=== PATIENT | female | born 1960 | race Caucasian/White ===

== ENCOUNTER 2017-06-16 13:43 | Emergency (ER) | payer BC ==
[2017-06-16 18:33] VITALS: BP 0/0
--- NOTE | 2017-06-16 20:13 | UC ---
Dizzy HPI - History Of Current Complaint Chief Complaint: UCAbdominalPain Stated Complaint: BACK PAIN AND ABDOMINAL SWELLING Time Seen by Provider: 06/16/17 18:00 Pain Intensity: 6 Pain Scale Used: 0-10 Numeric - Allergies/Home Medications Allergies/Adverse Reactions: Allergies Allergy/AdvReac Type Severity Reaction Status Date / Time No Known Allergies Allergy Verified 06/16/17 15:54 Home Medications: Home Medications Ibuprofen TAB* [Motrin TAB* 400 MG] 400 mg PO Q6H PRN 06/16/17 [History Confirmed 06/16/17] PMH/Surg Hx/FS Hx/Imm Hx - Surgical History Surgical History: Yes Surgery Procedure, Year, and Place: 2 LAPAROSCOPIES. 2 [place] 3 [facility] [place] - Family History Known Family History: Positive: None - Social History Alcohol Use: None Substance Use Type: None Smoking Status (MU): Current Every Day Smoker Amount Used/How Often: PPD Physical Exam Vital Signs: Initial Vital Signs Temp 98 F 06/16/17 15:56 Pulse 84 06/16/17 15:56 Resp 22 06/16/17 15:56 BP 151/90 06/16/17 15:56 Pulse Ox 97 06/16/17 15:56 Discharge - Discharge Plan Condition: Stable Disposition: OTHER Patient Education Materials: Abdominal Pain (ED) Referrals: Caro Esteban MD [Primary Care Provider] - If Needed Additional Instructions: UNCLEAR ETIOLOGY OF YOUR ABDOMINAL AND BACK PAIN. RECOMMEND GOING [place] [facility] [place] HERE FOR FURTHER EVALUATION.
--- NOTE | 2017-06-16 20:15 | UC ---
Abdominal Pain Female HPI - HPI Summary HPI Summary: 2 DAYS OF DIFFUSE ABDOMINAL PAIN AND BLOATING. NO NAUSEA OR FEVER. ALSO HAS RIGHT LOW BACK PAIN. SKIN IS TENDER AND PT REPORTS SHE FEELS A DEEP PAIN INSIDE. NO INJURY SHE CAN IDENTIFY. HAS PAIN WITH MOVEMENT. 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 Negative: Fever, Cough, Constipation, Blood in Stool, Urinary Symptoms, Nausea Allergies/Adverse Reactions: Allergies Allergy/AdvReac Type Severity Reaction Status Date / Time No Known Allergies Allergy Verified 06/16/17 15:54 Home Medications: Home Medications Ibuprofen TAB* [Motrin TAB* 400 MG] 400 mg PO Q6H PRN 06/16/17 [History Confirmed 06/16/17] PMH/Surg Hx/FS Hx/Imm Hx - Additional Past Medical History Additional PMH: ENDOMETRIOSIS, OVARIAN CYSTS - Surgical History Surgical History: Yes Surgery Procedure, Year, and Place: 2 LAPAROSCOPIES. 2 OR 3 [facility]. TONSILLECTOMY - Family History Known Family History: Positive: None - Social History Alcohol Use: None Substance Use Type: None Smoking Status (MU): Current Every Day Smoker Amount Used/How Often: PPD Review of Systems Constitutional: Negative Skin: Negative Respiratory: Negative Cardiovascular: Negative Gastrointestinal: Abdominal Pain, Other - DISTENDED, BLOATED Genitourinary: Negative All Other Systems Reviewed And Are Negative: Yes Physical Exam Triage Information Reviewed: Yes Appearance: Well-Nourished, Pain Distress - MODERATE Vital Signs: Initial Vital Signs Temp 98 F 06/16/17 15:56 Pulse 84 06/16/17 15:56 Resp 22 06/16/17 15:56 BP 151/90 06/16/17 15:56 Pulse Ox 97 06/16/17 15:56 Vital Signs Reviewed: Yes Eyes: Positive: Conjunctiva Clear ENT: Positive: Hearing grossly normal Neck: Positive: Supple Respiratory: Positive: Normal breath sounds, No respiratory distress Cardiovascular: Positive: Pulses Normal Abdomen Description: Positive: Soft, Distended, Other: - TENDER DIFFUSELY UPPER ABDOMEN WITH VOLUNTARY GUARDING AND GRIMACING. NO REBOUND. Negative: CVA Tenderness (R), CVA Tenderness (L) Bowel Sounds: Positive: Present Musculoskeletal: Positive: No Edema Neurological: Positive: Alert Psychological: Positive: Normal Response To Family, Age Appropriate Behavior Skin: Positive: Other - NO RASHES OR LESIONS AT PAINFUL SITE ON RIGHT LOW BACK. Diagnostics - Laboratory Diagnostic Studies Completed/Ordered: URINE DIP UNREMARKABLE Abd Pain Female Course/Dx - Course Course Of Treatment: ADVISED TO GO DIRECTLY TO [facility] [place] ED FROM HERE FOR FURTHER EVALUATION. - Differential Dx/Diagnosis Provider Diagnoses: UPPER ABDOMINAL PAIN, NOS Discharge - Discharge Plan Condition: Stable Disposition: OTHER Discharge Disposition Comment: TO [facility] [place] ED BY PRIVATE CAR Patient Education Materials: Abdominal Pain (ED) Referrals: Caro Esteban MD [Primary Care Provider] - If Needed Additional Instructions: UNCLEAR ETIOLOGY OF YOUR ABDOMINAL AND BACK PAIN. RECOMMEND GOING TO THE [facility] [place] ED DIRECTLY FROM HERE FOR FURTHER EVALUATION.
== END 2017-06-16 18:29 ==
LOC: UCEAST 13:43
DX: R10.10 Upper abdominal pain, unspecified (principal); R14.0 Abdominal distension (gaseous); M54.5 Low back pain; F17.200 Nicotine dependence, unspecified, uncomplicated
CPT/HCPCS: 81003; 99212; G0463

== ENCOUNTER 2017-06-17 09:57 | Emergency (ER) | payer BC ==
[2017-06-17] MEDS ORDERED: NS 0.9% 1000 ML* 1,000 ML IV ONE (11:37)
[2017-06-17 12:05] LABS: Urine Appearance Clear; Urine Blood Negative (Negative); Urine Color Straw; Urine Ketones Negative (Negative); Urine Protein Negative (Negative); Urine Specific Gravity 1.002 (1.010-1.030); Urine Urobilinogen Negative (Negative)
[2017-06-17] MEDS ORDERED: Morphine INJ* 4 MG/ML 1 ML CARPUJECT IV ONE (12:21)
[2017-06-17] MEDS ORDERED: Ondansetron INJ* 2 MG/ML VIAL IV ONE (12:21)
[2017-06-17 12:33] LABS: ABS Basophils 0.1 10^3/ul (0-0.2); ABS Eosinophils 0.1 10^3/ul (0-0.6); ABS Lymphocytes 1.9 10^3/ul (1.0-4.8); ABS Monocytes 0.6 10^3/ul (0-0.8); ABS Neutrophils 3.6 10^3/ul (1.5-7.7); ABS Nucleated RBC 0 10^3/ul; Eosinophil % 1.2 % (0-6); Hematocrit 40 % (35-47); Hemoglobin 13.8 g/dl (12.0-16.0); Lymphocyte % 30.8 % (25-47); Mean Corpuscular HGB Conc 35 g/dl (31-36); Mean Corpuscular Hemoglobin 34 pg (27-31); Mean Corpuscular Volume 98 fL (80-97); Mean Platelet Volume 7 um3 (7.4-10.4); Nucleated Red Blood Cells % 0.1; Platelet Count 314 10^3/ul (150-450); Red Blood Count 4.08 10^6/ul (4.0-5.4); Red Cell Distribution Width 13 % (10.5-15); White Blood Count 6.3 10^3/ul (3.5-10.8)
[2017-06-17] MEDS ORDERED: Morphine INJ* 2 MG/ML 1 ML CARPUJECT ONE (12:45)
[2017-06-17 12:47] LABS: EGFR Non-African American 80.6 (>60)
--- NOTE | 2017-06-17 12:59 | RAD ---
INDICATION: RIGHT flank pain, abdomen pain, bloating. Previous laparoscopies. COMPARISON: August 10, 2009 pelvic ultrasound. TECHNIQUE: Multidetector CT images were obtained from the lung bases to the ischial tuberosities. Evaluation of the viscera is limited without IV contrast. Multiplanar reformation. REPORT: Minimal bibasilar subsegmental atelectasis. Negative for CT abnormality of the liver. Incompletely distended gallbladder without suspicious finding. Unremarkable pancreas and spleen. Negative for CT abnormality of the upper GI, small bowel, infra cecal appendix, or colon. Negative for ascites, free air, hernias. Normal adrenal glands. Negative for urolithiasis or hydronephrosis. No conspicuous focal renal lesions evident. Unremarkable nondilated ureters and partially distended urinary bladder. Lobular contour of the uterus consistent with presence of fibroids as previously documented on ultrasound. Unremarkable adnexal regions. Negative for lymphadenopathy. Normal diameter abdominal aorta and iliac arteries with minimal calcific plaque. Physiologic partial distention of the IVC. Degenerative spondylosis and facet joint osteoarthritis. Associated reactive endplate sclerosis at the T12-L1 level. Negative for suspicious focal osseous lesions or fracture. IMPRESSION: 1. Negative urolithiasis or obstructive uropathy. 2. Normal appendix documented. 3. No etiology for abdominal or RIGHT flank pain evident.
[2017-06-17 14:45] VITALS: BP 134/81
--- NOTE | 2017-06-18 10:50 | ED ---
Courtney Granda Edward, scribed for Clarke Olivares MD on 06/17/17 at 1129 . GI/ HPI - HPI Summary HPI Summary: 56 y/o presents to the ED c/o severe R side flank pain starting a couple of days ago, worsening. The pain is 10/10 without meds. 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 Currently the pain is rated 4 /10 in severity. It started as an intermittent pain that became more intense. Associated sx: ABD swelling and pain, painful erythema @ R lower back. - History of Current Complaint Chief Complaint: EDFlankPain Time Seen by Provider: 06/17/17 11:28 Stated Complaint: ABD & BACK PAIN Hx Obtained From: Patient Onset/Duration: Started Days Ago Timing: Constant Pain Intensity: 4 Location of Pain: Flank - R side Associated Signs and Symptoms: Positive: Flank Pain - R side, Abdominal Pain - and swelling, Other: - ABD bloating, erythema @ lower back - Allergy/Home Medications Allergies/Adverse Reactions: Allergies Allergy/AdvReac Type Severity Reaction Status Date / Time No Known Allergies Allergy Verified 06/16/17 15:54 PMH/Surg Hx/FS Hx/Imm Hx Previously Healthy: No Respiratory History: Comment Only: Hx Sleep Apnea - ??possible but not diagnosed Musculoskeletal History: Reports: Hx Tendonitis - right shoulder Sensory History: Reports: Hx Contacts or Glasses - GLASSES Denies: Hx Hearing Aid Opthamlomology History: Reports: Hx Contacts or Glasses - GLASSES - Cancer History Hx Chemotherapy: No Hx Radiation Therapy: No - Surgical History Surgery Procedure, Year, and Place: 2 LAPAROSCOPIES. 2 OR 3 [facility]. TONSILLECTOMY Hx Anesthesia Reactions: No Infectious Disease History: No Infectious Disease History: Denies: Traveled Outside the [place] in Last 30 Days - Family History Known Family History: Positive: None - Social History Alcohol Use: None Hx Substance Use: No Substance Use Type: Reports: None Hx Tobacco Use: Yes Smoking Status (MU): Current Every Day Smoker Amount Used/How Often: PPD Review of Systems Constitutional: Negative Eyes: Negative ENT: Negative Cardiovascular: Negative Respiratory: Negative Positive: Abdominal Pain Positive: flank pain Musculoskeletal: Negative Positive: Other - erythema at R side lower back Neurological: Negative Psychological: Normal All Other Systems Reviewed And Are Negative: Yes Physical Exam - Summary Physical Exam Summary: VITAL SIGNS: Reviewed. GENERAL: Patient is a well-developed and nourished female who is lying comfortable in the stretcher. Patient is not in any acute respiratory distress. HEAD AND FACE: Normocephalic and atraumatic. EYES: PERRLA, EOMI x 2, No injected conjunctiva. EARS: Hearing grossly intact. Ear canals and tympanic membranes are WNL. MOUTH: Oropharynx within normal limits. NECK: Supple, trachea is midline, no adenopathy, no JVD. CHEST: Symmetric, no tenderness at palpation LUNGS: Clear to auscultation bilaterally. No wheezing or crackles. CVS: RRR, S1 and S2 present, no murmurs or gallops appreciated. ABDOMEN: Soft, diffuse tenderness. No signs of distention. Positive bowel sounds. No rebound no guarding, and no masses palpated. No abdominal bruit or pulsations. EXTREMITIES: FROM in all major joints, no edema, no cyanosis or clubbing. NEURO: Alert and oriented x 3. No acute neurological deficits. Speech is normal. SKIN: Erythema at R side lower back radiating to the R flank. Triage Information Reviewed: Yes Vital Signs On Initial Exam: Initial Vitals Temp Pulse Resp BP Pulse Ox 98.1 F 83 16 145/78 98 06/17/17 10:12 06/17/17 10:12 06/17/17 10:12 06/17/17 10:12 06/17/17 10:12 Vital Signs Reviewed: Yes Diagnostics - Vital Signs Vital Signs Temp Pulse Resp BP Pulse Ox 06/17/17 10:12 98.1 F 83 16 145/78 98 - Laboratory Lab Results: Lab Results 06/17/17 06/17/17 06/17/17 Range/Units 11:49 12:20 12:20 WBC 6.3 (3.5-10.8) 10^3/ul RBC 4.08 (4.0-5.4) 10^6/ul Hgb 13.8 (12.0-16.0) g/dl Hct 40 (35-47) % MCV 98 H (80-97) fL MCH 34 H (27-31) pg MCHC 35 (31-36) g/dl RDW 13 (10.5-15) % Plt Count 314 (150-450) 10^3/ul MPV 7 L (7.4-10.4) um3 Neut % (Auto) 57.0 (38-83) % Lymph % (Auto) 30.8 (25-47) % [place] % (Auto) 10.2 H (1-9) % Eos % (Auto) 1.2 (0-6) % Baso % (Auto) 0.8 (0-2) % Absolute Neuts (auto) 3.6 (1.5-7.7) 10^3/ul Absolute Lymphs (auto) 1.9 (1.0-4.8) 10^3/ul Absolute Monos (auto) 0.6 (0-0.8) 10^3/ul Absolute Eos (auto) 0.1 (0-0.6) 10^3/ul Absolute Basos (auto) 0.1 (0-0.2) 10^3/ul Absolute Nucleated RBC 0 10^3/ul Nucleated RBC % 0.1 Sodium 135 (133-145) mmol/L Potassium 3.8 (3.5-5.0) mmol/L Chloride 102 (101-111) mmol/L Carbon Dioxide 27 (22-32) mmol/L Anion Gap 6 (2-11) mmol/L BUN 12 (6-24) mg/dL Creatinine 0.74 (0.51-0.95) mg/dL Est GFR ( Amer) 103.7 (>60) Est GFR (Non-Af Amer) 80.6 (>60) BUN/Creatinine Ratio 16.2 (8-20) Glucose 108 H (70-100) mg/dL Calcium 9.6 (8.6-10.3) mg/dL Total Bilirubin 0.40 (0.2-1.0) mg/dL AST 20 (13-39) U/L ALT 20 (7-52) U/L Alkaline Phosphatase 63 (34-104) U/L C-Reactive Protein < 1.00 (< 5.00) mg/L Total Protein 7.3 (6.4-8.9) g/dL Albumin 4.5 (3.2-5.2) g/dL Globulin 2.8 (2-4) g/dL Albumin/Globulin Ratio 1.6 (1-3) Amylase 33 (29-103) U/L Lipase 17 (11.0-82.0) U/L Urine Color Straw Urine Appearance Clear Urine pH 6.0 (5-9) Ur Specific [place] 1.002 L (1.010-1.030) Urine Protein Negative (Negative) Urine Ketones Negative (Negative) Urine Blood Negative (Negative) Urine Nitrate Negative (Negative) Urine Bilirubin Negative (Negative) Urine Urobilinogen Negative (Negative) Ur Leukocyte Esterase Negative (Negative) Urine Glucose Negative (Negative) Result Diagrams: 06/17/17 12:20 06/17/17 12:20 Lab Statement: Any lab studies that have been ordered have been reviewed, and results considered in the medical decision making process. - CT ABD/PEL CT CT Interpretation: No Acute Changes - 1. Negative urolithiasis or obstructive uropathy. 2. Normal appendix documented. 3. No etiology for abdominal or RIGHT flank pain evident. CT Interpretation Completed By: Radiologist - ED PHYSICIAN REVIEWS AND AGREES - Additional Comments Diagnostic Additional Comments: EKG - 11:40 - SR @ [address] elevations. Normal axis. Re-Evaluation - Re-Evaluation 1 Re-Evaluation Time: 14:20 Comment: discuss test results, plan to d/c GIGU Course/Dx - Course Assessment/Plan: 56 y/o presents to the ED c/o severe R side flank pain starting a couple of days ago, worsening. The pain is 10/10 without meds. 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 Currently the pain is rated 4/10 in severity. It started as an intermittent pain that became more intense. Associated sx: ABD swelling and pain, painful erythema @ R lower back. ABD/PEL CT SHOWS 1. Negative urolithiasis or obstructive uropathy. 2. Normal appendix documented. 3. No etiology for abdominal or RIGHT flank pain evident. EKG - 11:40 - SR @ [address] elevations. Normal axis. Test results without significant abnormalities. UA UTI. Since pt was having flank pain I decided to do abd/pel ct. At this point pt has 2 small papules where pt has pain. I have concern for shingles but at this point the pt doesnt have a vesicular rash so I cant diagnose at this point. We agreed if she develops the vesicular rash that she will take Valtrix. At this point the pt will be d/c home to f/u pcp for further workup and management. She was also instructed to return for worsening of current symptoms. I discussed all the findings and test results with the patient. Patient was instructed to return to the emergency room immediately if any of the symptoms return or worsens. Plan of care was discussed with the patient and understands and agrees. All questions were answered at patient satisfaction. There were no further complaints or concerns. Lung exam before discharge: CTA B /L. Good air exchange. No wheezing or crackles heard. CVS: S1 and S2 present. No murmurs appreciated. Patient is alert and oriented x 3. Patient is hemodynamically stable. Patient will be discharged home with follow up PCP in the next 2-3 days - Diagnoses Differential Diagnoses - Female: Renal Calculi, Renal Colic Provider Diagnoses: Flank pain Discharge - Discharge Plan Condition: Stable Disposition: HOME Prescriptions: HYDROcodone/ACETAMIN 5-325 MG* [[place] 5-325 TAB*] 1 tab PO Q8H PRN #15 tab MDD 4 PRN Reason: Pain ValACYclovir (*) [Valtrex 1 GM(*)] 1 gm PO TID #28 tab Patient Education Materials: Flank Pain (ED) Referrals: Caro Esteban MD [Primary Care Provider] - 4 Days (PLEASE F/U IN 3-5 DAYS) The documentation as recorded by the Courtney olson Edward accurately reflects the service I personally performed and the decisions made by , Clarke Olivares MD.
== END 2017-06-17 14:42 | disposition home or self-care (01) ==
LOC: ED 09:57
DX: R10.9 Unspecified abdominal pain (principal); F17.200 Nicotine dependence, unspecified, uncomplicated
CPT/HCPCS: 36415; 74176; 80053; 81003; 82150; 83690; 85025; 86140; 93005; 96361; 96374; 96375; 96376; 99282; J2270

== ENCOUNTER 2019-03-11 15:35 | Emergency (ER) | payer BC ==
[2019-03-11 15:52] VITALS: BP 142/84
--- NOTE | 2019-03-11 16:20 | UC ---
Throat Pain/Nasal Real HPI - HPI Summary HPI Summary: 58 year old female with + tob use, + PMH seasonal allergies, sinus infections in past presents with sinus congestion, pressure, pain, L>R, sore throat worse ov er 2-3 days. Patient states has had sinus pressure x 3-4 weeks, treating with OTC allergy medication, however now worse. no fever, chills, no GI complaints - History of Current Complaint Chief Complaint: UCRespiratory Stated Complaint: POSS SINUS INFECTION Time Seen by Provider: 03/11/19 16:19 Hx Obtained From: Patient ?: No Onset/Duration: Sudden Onset, Lasting Days - 3 days Severity: Moderate Pain Intensity: 4 Pain Scale Used: 0-10 Numeric Cough: Productive Associated Signs & Symptoms: Positive: Sinus Discomfort, Nasal Discharge. Negative: Fever, Vomiting Related History: Seasonal Allergies, Smoking - Allergies/Home Medications Allergies/Adverse Reactions: Allergies Allergy/AdvReac Type Severity Reaction Status Date / Time No Known Allergies Allergy Verified 03/11/19 15:52 PMH/Surg Hx/FS Hx/Imm Hx Previously Healthy: Yes - tob use - Surgical History Surgical History: Yes Surgery Procedure, Year, and Place: 2 LAPAROSCOPIES. 2 OR 3 [facility]. TONSILLECTOMY - Family History Known Family History: Positive: None, Non-Contributory - Social History Occupation: Employed Full-time Alcohol Use: None Substance Use Type: None Smoking Status (MU): Light Every Day Tobacco Smoker Amount Used/How Often: PPD Have You Smoked in the Last Year: Yes Review of Systems All Other Systems Reviewed And Are Negative: Yes Constitutional: Positive: Fatigue. Negative: Fever, Chills ENT: Positive: Sore Throat, Ear Ache, Nasal Discharge, Sinus Congestion, Sinus Pain/Tenderness Respiratory: Negative: Shortness Of Breath, Cough Is Patient Immunocompromised?: No Physical Exam Triage Information Reviewed: Yes Appearance: No Pain Distress, Well-Nourished, Ill-Appearing - minimal Vital Signs: Initial Vital Signs Temp 98.9 F 03/11/19 15:46 Pulse 98 03/11/19 15:46 Resp 16 03/11/19 15:46 BP 142/84 03/11/19 15:46 Pulse Ox 98 03/11/19 15:46 Vital Signs Reviewed: Yes Eyes: Positive: Conjunctiva Clear ENT: Positive: Pharynx normal, TMs normal, Sinus tenderness. Negative: TM bulging, TM dull, TM red, Tonsillar swelling, Tonsillar exudate, Muffled voice, Uvula midline Neck: Positive: Supple, Nontender, No Lymphadenopathy, Other: - periaur tenderness. Negative: Nuchal Rigidity, Enlarged Nodes @ Respiratory: Positive: Chest non-tender, Lungs clear, Normal breath sounds, No respiratory distress, No accessory muscle use. Negative: Crackles, Rhonchi, Stridor, Wheezing Cardiovascular: Positive: RRR, No Murmur Neurological Exam: Normal Psychological Exam: Normal Throat Pain/Nasal Course/Dx - Course Course Of Treatment: Sinusitis: - ANtibiotics as directed - Increase fluid intake - Motrin/ tylenol as needed for pain, headache - Return or follow up with primary physician in 2-3 days if no improvement - Differential Dx/Diagnosis Differential Diagnosis/HQI/PQRI: Peritonsillar Abscess, Pharyngitis, Sinusitis, URI Provider Diagnosis: Sinusitis Discharge ED - Sign-Out/Discharge Documenting (check all that apply): Patient Departure All imaging exams completed and their final reports reviewed: No Studies - Discharge Plan Condition: Good Disposition: HOME Prescriptions: Amoxicillin PO (*) [Amoxicillin 875 MG (*)] 875 mg PO BID #14 tab Amoxicillin PO (*) [Amoxicillin 875 MG (*)] 875 mg PO BID #14 tab Patient Education Materials: Sinusitis (ED) Referrals: Caro Esteban MD [Primary Care Provider] - Additional Instructions: - ANtibiotics as directed - Increase fluid intake - Motrin/ tylenol as needed for pain, headache - Return or follow up with primary physician in 2-3 days if no improvement - Billing Disposition and Condition Condition: GOOD Disposition: Home
== END 2019-03-11 16:58 | disposition home or self-care (01) ==
LOC: UCEAST 15:35
DX: J32.9 Chronic sinusitis, unspecified (principal); F17.210 Nicotine dependence, cigarettes, uncomplicated
CPT/HCPCS: 99212; G0463

== ENCOUNTER 2019-07-18 17:48 | Emergency (ER) | payer BC | END 2019-07-18 19:18 | disposition left against medical advice (07) | LOC: UCEAST 17:48 | DX: Z53.21 Procedure and treatment not carried out due to patient leaving prior to being seen by health care provider (principal) ==